=== PATIENT | male | born 1975 | race African-American/Black ===

== ENCOUNTER 2022-04-25 23:45 | Emergency (ER) | payer MEDICAID ==
[~2022-04-25] VITALS: Ht 185.4 cm; Wt 86.9 kg
[2022-04-26] MEDS ORDERED: ONDANSETRON HCL 4MG/2ML INJ IV STA (03:57)
[2022-04-26] MEDS ORDERED: MORPHINE SULFATE 4 MG/ML CPJ (NOT FOR IM USE) IV STA (03:57)
[2022-04-26] MEDS ORDERED: CEFTRIAXONE 1 G PREMIX 50 ML IV ONE (04:00)
[2022-04-26] MEDS ORDERED: SODIUM CHLORIDE 0.9% 1,000 ML IV ONE ×2 (04:00)
[2022-04-26] MEDS ORDERED: CLINDAMYCIN 600 MG in DEXTROSE 5% WATER 50 ML IV ONE (04:00)
[2022-04-26] MEDS ORDERED: CLINDAMYCIN 600MG PREMIX 50 ML IV NR (04:15)
[2022-04-26 04:27] LABS: BASOPHILS % 0.4 % (0.0-2.0); EOSINOPHILS % 0.4 % (0.0-5.0); HEMATOCRIT. 47.8 % (42.0-52.0); HEMOGLOBIN. 15.9 g/dL (14.0-18.0); LYMPHOCYTES % 18.7 % (20.0-50.0); MEAN CORPUSCULAR HEMOGLOBIN 30.9 pg (28.0-32.0); MEAN CORPUSCULAR VOLUME 92.7 fL (80.0-94.0); MEAN PLATELET VOLUME 10.2 fl (7.4-10.4); MONOCYTES % 6.6 % (2.0-8.0); NEUTROPHILS % 73.9 % (40.0-76.0); PLATELET 228 x1000/uL (130-400); RED BLOOD CELL COUNT 5.16 mill/uL (4.7-6.1); RED CELL DISTRIBUTION WIDTH 14.1 % (11.6-14.6)
[2022-04-26 04:33] LABS: CHLORIDE 108 mEq/L (98-107)
[2022-04-26] MEDS ORDERED: CEPH500C2 MT (06:54)
[2022-04-26] MEDS ORDERED: HYDR-4001 MT (06:54)
[2022-04-26 08:38] VITALS: BP 175/120
== END 2022-04-26 09:09 | disposition home or self-care (01) ==
LOC: EDBD 23:45 → ER 23:45
DX: L03.211 Cellulitis of face (principal); M41.9 Scoliosis, unspecified; F17.210 Nicotine dependence, cigarettes, uncomplicated; Z98.890 Other specified postprocedural states
CPT/HCPCS: 36415; 70486; 71045; 80053; 83605; 85025; 87040; 96365; 96375; 99285; J0696; J2270; J2405; J3490; J7030; Z7610; J7060